=== PATIENT | female | born 1985 | race Caucasian/White ===

== ENCOUNTER 2016-09-13 14:21 | Outpatient (CLI) | payer OTHER ==
[2016-09-13 14:44] LABS: BASOPHILS % 0.2 (0.0-1.5); EOSINOPHILS % 4.8 % (0.0-6.8); MEAN CORPUSCULAR HEMOGLOBIN 31.3 pg (28.0-34.0); MEAN CORPUSCULAR VOLUME 93.7 fl (80.0-100.0); MONOCYTES % 4.4 % (0.0-11.0); NEUTROPHILS # 5.7 # k/uL (1.4-7.7)
[2016-09-13 15:06] LABS: eGFR (African) > 60; eGFR (Non-African) > 60
== END 2016-09-13 14:22 ==
LOC: LAB 14:21
PROVIDERS: ATTEND Nurse Practitioner
DX: G35 Multiple sclerosis (principal); Z79.899 Other long term (current) drug therapy
CPT/HCPCS: 36415; 80053; 85025

== ENCOUNTER 2016-12-28 14:34 | Outpatient (CLI) | payer OTHER ==
[2016-12-28 15:04] LABS: BASOPHILS % 0.4 (0.0-1.5); EOSINOPHILS % 5.5 % (0.0-6.8); MEAN CORPUSCULAR VOLUME 91.3 fl (80.0-100.0); MONOCYTES % 4.7 % (0.0-11.0); NEUTROPHILS # 6.2 # k/uL (1.4-7.7)
[2016-12-28 15:22] LABS: eGFR (African) > 60; eGFR (Non-African) > 60
== END 2016-12-28 14:35 ==
LOC: LAB 14:34
PROVIDERS: ATTEND Nurse Practitioner
DX: G35 Multiple sclerosis (principal)
CPT/HCPCS: 36415; 80053; 85025